=== PATIENT | male | born 1975 | race Caucasian/White ===

== ENCOUNTER 2016-10-21 13:32 | Emergency (ER) | payer SELFPAY ==
[~2016-10-21] VITALS: Ht 170.2 cm; Wt 72.6 kg
--- NOTE | 2016-10-21 13:32 | NUR ---
Patient was BIB [place] [employer] at this time.
[2016-10-21 13:35] VITALS: BP 133/78
--- NOTE | 2016-10-21 13:40 | NUR ---
Dr. Rad mcdanieluting patient.
[2016-10-21 13:51] VITALS: BP 137/87
--- NOTE | 2016-10-21 13:51 | NUR ---
PATIENT BIB [employer]. PATIENT EXAMINED BY DR. MASON. PATIENT MEDICALLY CLEARED AND RELEASED IN CUSTODY IN STABLE CONDITION. ORIGINAL PRE-BOOK FORM GIVEN TO OFFICER .
== END 2016-10-21 13:51 ==
LOC: MED 13:32
DX: Z02.89 Encounter for other administrative examinations (principal); K46.9 Unspecified abdominal hernia without obstruction or gangrene; F17.200 Nicotine dependence, unspecified, uncomplicated

== ENCOUNTER 2023-10-14 14:49 | Emergency (ER) | payer SELFPAY ==
[~2023-10-14] VITALS: Ht 167.6 cm; Wt 75.0 kg
[2023-10-14 14:54] VITALS: BP 158/97; PULSE 120; RESP 20; TEMP 97.7
[2023-10-14 17:26] VITALS: BP 145/88; PULSE 88; RESP 16; TEMP 98; O2SAT 99
== END 2023-10-14 17:26 | disposition home or self-care (01) ==
LOC: MED 14:49
DX: S01.01XA Laceration without foreign body of scalp, initial encounter (principal); S06.0X0A Concussion without loss of consciousness, initial encounter; Z79.899 Other long term (current) drug therapy; W18.30XA Fall on same level, unspecified, initial encounter; Y93.89 Activity, other specified; Y92.89 Other specified places as the place of occurrence of the external cause; Y99.8 Other external cause status
CPT/HCPCS: 12001; 70450; 72125; 99284

== ENCOUNTER 2023-10-29 15:00 | Emergency (ER) | payer SELFPAY ==
[~2023-10-29] VITALS: Ht 167.6 cm; Wt 72.6 kg
[2023-10-29 15:10] VITALS: BP 143/93; PULSE 104; RESP 20; TEMP 97.8; O2SAT 99
== END 2023-10-29 16:18 | disposition home or self-care (01) ==
LOC: MED 15:00
DX: S01.81XD Laceration without foreign body of other part of head, subsequent encounter (principal); Z48.02 Encounter for removal of sutures; X58.XXXD Exposure to other specified factors, subsequent encounter
CPT/HCPCS: 99281